=== PATIENT | male | born 1970 | race Caucasian/White ===

== ENCOUNTER 2018-11-04 17:20 | Emergency (ER) | payer MEDICAID, OTHER ==
[2018-11-04] MEDS ORDERED: ASPIRIN 81 MG CHEWABLE TABLET PO ONE (17:28)
[2018-11-04] MEDS ORDERED: KETOROLAC 30 MG/ML VIAL IVP ONE (17:28)
[2018-11-04] MEDS ORDERED: 0.9 % SODIUM CHLORIDE 1000ML 1,000 ML IV SCH (17:30)
--- NOTE | 2018-11-04 17:32 | Emergency Department Record ---
History of Present Illness - General Chief Complaint: Chest Pain Stated Complaint: CHEST PAIN/ Time Seen by Provider: 11/04/18 17:27 Source: Patient Mode of Arrival: Ambulatory Limitations: No limitations - History of Present Illness Initial Comments: 48 yo male presents to ED for evaluation of chest discomfort that began approximately 1 hour ago. Patient reports pain with deep breaths, reports numerous ill contacts at home with influenza. Patient also reports temperature of 101.7 at home earlier today. Patient denies history of heart disease, denies lower extremity swelling or pain, and denies previous history of DVT. Patient does report numerous body aches as well on examination. MD Complaint: Chest pain Onset/Timin -: Hour(s) Onset: During rest Pain Location: Substernal Severity: Moderate Quality: Sharp Consistency: Intermittent Improves With: Nothing Worsens With: Inspiration Context: Recent illness Anginal Symptoms: Dyspnea Treatments Prior to Arrival: None - Related Data Previous Rx's Medication Instructions Recorded Azithromycin [Zithromax] 250 mg PO DAILY #6 tablet 11/04/18 Allergies Allergy/AdvReac Type Severity Reaction Status Date / Time No Known Drug Allergies Allergy Verified 11/04/18 17:26 Review of Systems Constitutional: Reports: Fever. Denies: Chills, Malaise Eyes: Denies: Eye discharge, Eye pain ENT: Denies: Congestion, Ear pain, Epistaxis Respiratory: Reports: Cough, Dyspnea Cardiovascular: Reports: Chest pain. Denies: Dyspnea on exertion, Edema Endocrine: Denies: Fatigue, Heat or cold intolerance Gastrointestinal: Denies: Abdominal pain, Nausea, Vomiting Genitourinary: Denies: Incontinence, Retention Musculoskeletal: Denies: Arthralgia, Back pain Skin: Denies: Bruising, Change in color Neurological: Denies: Abnormal gait, Confusion, Headache, Tingling, Tremors Psychiatric: Denies: Anxiety Hematological/Lymphatic: Denies: Anemia, Blood Clots Past Medical History - SOCIAL HISTORY Smoking Status: Current every day smoker - RESPIRATORY Hx Respiratory Disorders: No - CARDIOVASCULAR Hx Cardio Disorders: No - NEURO Hx Neuro Disorders: No - GI Comment:: reflux - Hx Genitourinary Disorders: No - ENDOCRINE Hx Endocrine Disorders: No - MUSCULOSKELETAL Hx Musculoskeletal Disorders: No - PSYCH Hx Psych Problems: No - HEMATOLOGY/ONCOLOGY Hx Hematology/Oncology Disorders: No Physical Exam - General General Appearance: Alert, Oriented x3, Cooperative, Mild distress Limitations: No limitations - Head Head exam: Atraumatic, Normocephalic, Normal inspection Head exam detail: negative: Abrasion, Contusion, Charles's sign, General tenderness, Hematoma, Laceration - Eye Eye exam: Normal appearance. negative: Conjunctival injection, Periorbital swelling, Periorbital tenderness, Scleral icterus - ENT Ear exam: negative: Auricular hematoma, Auricular trauma Nasal Exam: negative: Active bleeding, Discharge, Dried blood, Foreign body Mouth exam: negative: Drooling, Laceration, Muffled voice, Tongue elevation - Neck Neck exam: Normal inspection. negative: Meningismus, Tenderness - Respiratory Respiratory exam: Normal lung sounds bilaterally. negative: Respiratory distress, Rhonchi, Stridor - Cardiovascular Cardiovascular Exam: Regular rate, Normal rhythm, Normal heart sounds - GI/Abdominal GI/Abdominal exam: Soft. negative: Rebound, Rigid, Tenderness - Rectal Rectal exam: Deferred - exam: Deferred - Extremities Extremities exam: Normal inspection. negative: Pedal edema, Tenderness - Back Back exam: Denies: CVA tenderness (R), CVA tenderness (L) - Neurological Neurological exam: Alert, Normal gait, Oriented X3 - Psychiatric Psychiatric exam: Normal affect, Normal mood - Skin Skin exam: Normal color. negative: Abrasion Type of lesion: negative: abrasion Course - Reevaluation(s) Reevaluation #1: 11/04/18 17:55 EKG: Sinus tachycardia 106 T wave inversions II, III, AVFV5-V6 Reevaluation #2: 11/04/18 18:07 Laboratory studies were reviewed and are grossly unremarkable for an acute process. Influenza Negative. Troponin negative for myocardial injury. Reevaluation #3: 11/04/18 19:44 CTA Chest: No PE Dependent atelectasis vs. infiltrate dependent portion of the lungs Reevaluation #4: 11/04/18 19:58 Patient was updated on all results Discussed initiating antibiotics for possible early bilateral pneumonia, patient declined. Patient is resting comfortably at this time, pulse 99, biox RA 96%. Reevaluation #5: 11/04/18 20:51 Repeat Troponin appears negative for an acute myocardial injury. Will prescribe Zithromax as directed for outpatient treatment. Medical Decision Making - Lab Data Result diagrams: 11/04/18 17:36 11/04/18 17:36 Disposition Disposition: Discharge Clinical Impression: Chest pain Qualifiers: Chest pain type: unspecified Qualified Code(s): R07.9 - Chest pain, unspecified Disposition: Home, Self-Care Condition: (2) Stable Instructions: Chest Pain (ED) Additional Instructions: Return to ED if your symptoms worsen or if you have any concerns. Follow-up with your family doctor in 3-5 days as directed. Zithromax as directed. Prescriptions: Azithromycin [Zithromax] 250 mg PO DAILY #6 tablet Forms: Patient Portal Access Time of Disposition: 20:48 Quality - Quality Measures Quality Measures: N/A - Blood Pressure Screening Does Patient Have Any of the Following: No Blood Pressure Classification: Pre-Hypertensive BP Reading Systolic Measurement: 125 Diastolic Measurement: 78 Screening for High Blood Pressure: < Pre-Hypertensive BP, F/U Documented > [ [id number]] Pre-Hypertensive Follow-up Interventions: Referral to alternative/primary care provider.
[2018-11-04 17:44] LABS: HEMATOCRIT 49.2 % (42.0-52.0); HEMOGLOBIN 16.9 gm/dl (14.0-18.0); MEAN CELL VOLUME 92.1 fl (81-97); MEAN CORPUSCULAR HEMOGLOBIN 31.6 pg (27-33); MEAN CORPUSCULAR HGB CONC 34.3 g/dl (32-36); MEAN PLATELET VOLUME 9.7 fl (7.4-10.4); PLATELET COUNT 223 K/uL (130-400); RED BLOOD COUNT 5.34 M/uL (4.40-5.70); RED CELL DISTRIBUTION WIDTH 14.4 % (11.5-14.5); WHITE BLOOD COUNT W/O DIFF 8.9 K/uL (4.2-12.2)
[2018-11-04 17:51] LABS: PLATELET ESTIMATE NORMAL (NORMAL)
[2018-11-04 17:57] LABS: BLOOD UREA NITROGEN 15 mg/dL (6-20); CREATININE 0.9 mg/dL (0.7-1.2); EST GLOMERULAR FILTRATION RATE > 60 mL/min
[2018-11-04 17:58] LABS: TOTAL PROTEIN 7.5 g/dL (6.6-8.7)
[2018-11-04 18:00] LABS: GLUCOSE,RANDOM 143 mg/dL (74-109)
[2018-11-04 18:01] LABS: INFLUENZA A NEGATIVE (NEGATIVE); INFLUENZA B NEGATIVE (NEGATIVE)
[2018-11-04 18:02] LABS: ALT/SGPT 43 U/L (<41); AST/SGOT 22 U/L (10.0-50.0)
[2018-11-04 18:03] LABS: ALB/GLOB RATIO 1.5 (1.1-1.8); ALBUMIN 4.5 g/dL (4.0-5.0); ALKALINE PHOSPHATASE 57 U/L (40-129)
--- NOTE | 2018-11-06 13:05 | RADIOLOGY REPORT ---
EXAM: CHEST, TWO VIEWS HISTORY: SUDDEN ONSET OF CHEST PAIN. SMOKER. TECHNIQUE: Upright PA and lateral views of the chest were obtained. Comparison: CT of the abdomen with contrast dated 03/20/14. FINDINGS: The heart is not enlarged and the pulmonary vasculature is nondilated. Minor biapical lung scarring is questioned. The lungs and pleural spaces are otherwise clear. The lungs are borderline to mildly hyperinflated. The osseous structures are intact. IMPRESSION: NO EVIDENCE OF ACUTE CARDIOPULMONARY DISEASE. THE LUNGS ARE BORDERLINE TO MILDLY HYPERINFLATED. JOB NUMBER: [id number] [facility]
--- NOTE | 2018-11-06 14:56 | CT ANGIOGRAM REPORT ---
EXAM: CT ANGIOGRAM OF THE CHEST WITH POST PROCESSING HISTORY: SHARP MID CHEST PAIN FOR TWO HOURS. ELEVATED D-DIMER. TECHNIQUE: Routine CTA examination of the thorax was performed utilizing a pulmonary embolus protocol with 85 ml of Omnipaque 350 utilized. Coronal and sagittal maximum intensity projection reformatted images are generated and reviewed. Comparison: Same day two view chest radiographic examination. FINDINGS: Opacification of the pulmonary arteries is satisfactory for interpretation though evaluation at several levels is mildly limited by motion artifact particularly in the immediate left infrahilar region and within the bases. No luminal filling defect is noted in the outflow tract, main arteries, lobar arteries, nor proximal segmental arteries that are unaffected by respiratory motion to suggest acute pulmonary embolic disease. The heart is not grossly enlarged. The thoracic aorta is mildly atherosclerotic without aneurysmal dilatation nor dissection. The arch branch vessels are patent. No mediastinal nor hilar mass/lymphadenopathy is seen. There is a small amount of retained secretions along the right wall of the trachea. The central airways are otherwise clear. Patchy opacities are noted dependently in each lung base consistent with atelectasis or less likely infiltrate. Bilateral emphysema primarily paraseptal is noted in the upper lungs where it is moderate to severe, right greater than left. The adrenal glands are not enlarged. Healed granulomatous disease is demonstrated within the spleen. The gallbladder is likely surgically absent. No lytic or blastic bone lesion. IMPRESSION: 1. NO CTA EVIDENCE OF ACUTE PULMONARY EMBOLIC DISEASE THOUGH EVALUATION AT A FEW LEVELS IS MILDLY LIMITED BY RESPIRATORY MOTION. 2. PATCHY OPACITIES WITHIN THE DEPENDENT LOWER LUNGS CONSISTENT WITH ATELECTASIS OR LESS LIKELY INFILTRATE. 3. BILATERAL EMPHYSEMA. JOB NUMBER: [id number] [facility]
== END 2018-11-04 20:54 | disposition home or self-care (01) ==
LOC: ER 17:20
DX: R07.9 Chest pain, unspecified (principal); R06.00 Dyspnea, unspecified; R50.9 Fever, unspecified; F17.210 Nicotine dependence, cigarettes, uncomplicated
CPT/HCPCS: 99284 ×2; 96374; 80053; 87400; 84484; 85379; 85027; 71046; 71275; 93005; 93010; Q9967; J1885; J7030